=== PATIENT | female | born 2000 | race Hispanic/Latino ===

== ENCOUNTER 2023-05-06 15:25 | Emergency (ER) | payer OTHER, SELFPAY ==
[2023-05-06 15:29] VITALS: BP 125/91
--- NOTE | 2023-05-06 18:13 | ED.GENMED ---
History of Present Illness
General
Chief Complaint: Post Operative Problem(s)
Source: patient
Exam Limitations: none
Time Seen by Provider: 05/06/23 17:55
Nursing documentation reviewed up to this point in time: agreed with
Travel History
Have you had any contact with someone who has COVID-19?: No
Do you have any symptoms of coronavirus? Fever > 100 degrees, chills, cough, shortness of breath, sore throat, loss of taste or smell, muscle aches, or headache?: No
History of Present Illness
History of Present Illness:
22-year-old female presents emergency department complaining of clearish yellowish drainage, nonfoul-smelling. This began 2 days ago. She had some pain. She also notes she had a fever 2 days ago but denies any fever today. She denies any
dysuria. She had a on 04/24/2023 at [facility].
Past History
Past History
ED Past Medical History: Other (Chlamydia 2019, 2021, ovarian cysts)
ED Past Surgical History: None
Social History
Tobacco: Non-smoker
Alcohol: None
Drug: None
Personal: Single
Employment: Not employed
Family History
Family History: Other (Noncontributory)
Review of Systems
Review of Systems
Allergies reviewed?: Yes
All Other Systems: Not applicable
Constitutional: Reports fever (2 days ago)
EENT: Reports no symptoms
Respiratory: Reports no symptoms
Cardiac: Reports no symptoms
ABD/GI: Reports no symptoms
: Reports no symptoms
Musculoskeletal: Reports no symptoms
Skin: Reports other (csxn wound drainage)
Neurological: Reports no symptoms
Endocrine: Reports no symptoms
Hematologic/Lymphatic: Reports no symptoms
Psychiatric: Reports no symptoms
Phy Exam
Physical Exam
Physical Exam:
Physical Exam
General: no apparent distress, not acutely ill
Neck: supple. no meningeal signs.
Heart: equal radial pulses.
HEENT: Pupils equal round reactive to light, EOMI
Lungs: no acute respiratory distress. clear bilaterally
Abdomen: normal bowel sounds. not tender. no CVAT
Neuro: alert and oriented. no focal neurological deficits
Skin: no rash, scant serosanguinous drainage from csxn scar
Psychiatric: well kept. interactive and cooperative
Extremities: no edema. no calf tenderness. negative homans. good distal pulses
Course
Vital Signs
Initial and Last Documented VS:
Initial Vital Signs
Temp Pulse Resp BP Pulse Ox
98.0 F 81 16 125/91 98
05/06/23 15:29 05/06/23 15:29 05/06/23 15:29 05/06/23 15:29 05/06/23 15:29
Last Documented Vital Signs
Temp Pulse Resp BP Pulse Ox
98.0 F 81 16 125/91 98
05/06/23 15:29 05/06/23 15:29 05/06/23 15:29 05/06/23 15:29 05/06/23 15:29
MDM/Problems Addressed
Differential Diagnosis Includes:
Seroma, surgical wound infection
MDM/Problems Addressed:
22-year-old female with wound check, serosanguineous drainage seen, scant. Do not suspect abscess or infection. Abdomen exam benign. 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
Chronic conditions affecting care: Previous abdomnial surgery
Acute Exacerbation and/or Progression of Chronic Illness: Previous abdomnial surgery ()
*Pulse Oximetry
Patient hypoxic: no
*EKG
Interpreted by ED Provider?: NA
*Dividing Machine Operator Interpretation
Rate: Dividing Machine Operator- N/A
*Critical Care Note
Total Time (30-74mins, 75-104mins- exclusive of procedures): Not Applicable
Patient Management
Social determinants of health affecting care: Living situation and Strong social support
Escalation/DeEscalation of care consider admission/obs:
Admit not indicated
ED Attending Note
-
Portions of this chart may have been created with voice recognition software.� Occasional wrong word or��sound alike� substitutions may have occurred due to the inherent limitations of voice recognition software.
Discharge Plan
Departure
Patient Disposition: Home (Routine Discharge)
Date of Disposition: 05/06/23
Time of Disposition: 18:25
Patient with high blood pressure during this ER visit?: Yes
Condition: Good
Discharge Problem:
Visit for wound check
Instructions: Wound Care (DC), BLOOD PRESSURE
Prescriptions:
No Action
doxycycline hyclate 100 MG capsule
100 mg PO Q12 Qty: 20 0RF
metronidazole 500 MG tablet
500 mg PO BID 7 Days Qty: 14 0RF
doxycycline hyclate 100 MG capsule
100 mg PO Q12 7 Days Qty: 14 0RF
Referrals:
NONE,* [Family Provider] -
Activity Restrictions/Additional Instructions:
Follow up with Supervisor [employer] at [facility] who performed your csection.
Interventions
Interventions:
*Risk Screen - Suicide Last Done: 05/06/23 17:39
*General Assessment Last Done: 05/06/23 17:39
*Neglect/Abuse Screening Last Done: 05/06/23 17:39
*ED COVID-19 Vaccine History Last Done: 05/06/23 15:29
ED-Skin Assessment Last Done: 05/06/23 17:37
[2023-05-06] MEDS: TYLENOL 650 MG PO (18:34)
== END 2023-05-06 18:36 | disposition home or self-care (01) ==
LOC: EMR 15:25
PROVIDERS: EMERGENCY PHYSICIAN Emergency Medicine
DX: Z48.01 Encounter for change or removal of surgical wound dressing (principal); R50.9 Fever, unspecified; Z86.16 Personal history of COVID-19
CPT/HCPCS: 99283

== ENCOUNTER 2025-02-19 15:37 | Emergency (ER) | payer SELFPAY ==
[2025-02-19 15:44] VITALS: BP 120/79
--- NOTE | 2025-02-19 17:48 | ED.GENMED ---
History of Present Illness
General
Chief Complaint: Head Injury
Time Seen by Provider: 02/19/25 17:03
History of Present Illness
History of Present Illness:
24-year-old female presents to the emergency department for evaluation of headache and nausea as well as photophobia after striking her head 2 days ago. States she was getting groceries in her car when she struck her head on the frame of the car.
There was no LOC at that time. Had a mild headache yesterday but today her headache got worse and she had what sounds to be a near syncopal episode. Did not take any medications for headache. No vomiting or neck pain. No extremity paresthesias.
Does not take any anticoagulants or antiplatelets
Past History
Past History
ED Past Medical History: Other (Chlamydia 2019, 2021, ovarian cysts)
ED Past Surgical History: None
Social History
Tobacco: Non-smoker
Alcohol: None
Drug: None
Personal: Single
Employment: Not employed
Family History
Family History: Other (Noncontributory)
Review of Systems
Review of Systems
Allergies reviewed?: Yes
All Other Systems: ROS reviewed and negative except as documented in HPI and ROS
Phy Exam
Physical Exam
Physical Exam:
GEN: Well appearing, NAD, WDWN
HEENT: Oral mucosa moist, no scleral icterus, no nasal congestion
Cardiac: Regular rate
Lung: No respiratory distress, no tachypnea
MSK: No gross deformity or injuries
Skin: Good color, no pallor or jaundice, no rashes
Neuro: AO x3; CN II-XII grossly intact. BUE strength 5/5 in all seay, sensation intact and symmetric. BLE strength 5/5 in all seay, sensation intact and symmetric
Psych: Calm, cooperative
Course
Orders/Labs/Results
Orders:
Orders
02/19/25 17:47
Ketorolac [Toradol] 15 mg IV NOW STA
Metoclopramide [Reglan] 10 mg IV NOW STA
Vital Signs
Initial and Last Documented VS:
Initial Vital Signs
Temp Pulse Resp BP Pulse Ox
98.2 F 92 18 120/79 99
02/19/25 15:44 02/19/25 15:44 02/19/25 15:44 02/19/25 15:44 02/19/25 15:44
Last Documented Vital Signs
Temp Pulse Resp BP Pulse Ox
98.2 F 92 18 120/79 99
02/19/25 15:44 02/19/25 15:44 02/19/25 15:44 02/19/25 15:44 02/19/25 17:49
MDM/Problems Addressed
MDM/Problems Addressed:
Likely posttraumatic headache, neurologically intact with no indication for CT of the head. Improved with IV medications, discussed supportive care
*Pulse Oximetry
SaO2: 99
Oxygen Mode of Delivery: Room air
Patient hypoxic: no
*Critical Care Note
Total Time (30-74mins, 75-104mins- exclusive of procedures): Not Applicable
ED Attending Note
-
Portions of this chart may have been created with voice recognition software.� Occasional wrong word or��sound alike� substitutions may have occurred due to the inherent limitations of voice recognition software.
Discharge Plan
Departure
Patient Disposition: Home (Routine Discharge)
Date of Disposition: 02/19/25
Time of Disposition: 18:59
Patient with high blood pressure during this ER visit?: No
Discharge Problem:
Acute post-traumatic headache
Instructions: Head Injury in Adults (DC)
Prescriptions:
No Action
doxycycline hyclate 100 MG capsule
100 mg PO Q12 Qty: 20 0RF
metronidazole 500 MG tablet
500 mg PO BID 7 Days Qty: 14 0RF
doxycycline hyclate 100 MG capsule
100 mg PO Q12 7 Days Qty: 14 0RF
Referrals:
NONE,* [Family Provider, Internal Medicine]
Interventions
Interventions:
*Risk Screen - Suicide Last Done: 02/19/25 15:44
*General Assessment Last Done: 02/19/25 15:44
*Neglect/Abuse Screening Last Done: 02/19/25 15:44
*ED COVID-19 Vaccine History Last Done: 02/19/25 15:44
*ED Influenza Vaccine History Last Done: 02/19/25 15:44
*Nursing Disposition Last Done: 02/19/25 19:13
ED- Neurological Assessment Last Done: 02/19/25 18:10
ED-Skin Assessment Last Done: 02/19/25 18:10
Discharge Date and Time
Discharge Date/Time: 02/19/25 19:14
Print Language: [id number]
[2025-02-19] MEDS: REGLAN 10 MG IV (18:11)
[2025-02-19] MEDS: TORADOL 15 MG IV (18:11)
== END 2025-02-19 19:14 | disposition home or self-care (01) ==
LOC: EMR 15:37
PROVIDERS: EMERGENCY PHYSICIAN Emergency Medicine
DX: G44.319 Acute post-traumatic headache, not intractable (principal); S09.90XA Unspecified injury of head, initial encounter; W22.8XXA Striking against or struck by other objects, initial encounter
CPT/HCPCS: 96374; 96375; 99284